=== PATIENT | female | born 1975 | race Caucasian/White ===

== ENCOUNTER → 2020-06-26 08:10 | Outpatient (CLI) | payer BC, SELFPAY ==
[2020-06-27 19:09] LABS: SARS-CoV-2 RNA PCR Negative
== END ==
PROVIDERS: PCP Nurse Practitioner Adult Health; Visit Provider Nurse Practitioner Adult Health
DX: R05 Cough (principal); Z20.822 Contact with and (suspected) exposure to COVID-19
CPT/HCPCS: C9803; U0003; U0005